=== PATIENT | female | born 1995 | race Two or more races ===

== ENCOUNTER 2017-10-08 09:56 | Emergency (ER) | payer MEDICAID, OTHER ==
[~2017-10-08] VITALS: Ht 160 cm; Wt 63.5 kg
[~2017-10-08 09:56] MED LIST: RESPMIS93
[2017-10-08 10:55] VITALS: BP 110/62
[2017-10-08] MEDS ORDERED: IBUPROFEN 800 MG TAB PO ONE (11:30)
== END 2017-10-08 12:46 | disposition home or self-care (01) ==
LOC: ER 09:56 → EDBD 09:56 → ER 12:46
DX: S76.012A Strain of muscle, fascia and tendon of left hip, initial encounter (principal); S80.12XA Contusion of left lower leg, initial encounter; V43.52XA Car driver injured in collision with other type car in traffic accident, initial encounter; Y93.89 Activity, other specified; Y99.8 Other external cause status; Y92.410 Unspecified street and highway as the place of occurrence of the external cause
CPT/HCPCS: 73502; 73590; 81025